=== PATIENT | female | born 1985 | race Caucasian/White ===

== ENCOUNTER 2016-04-21 06:09 | Inpatient (IN) | payer SELFPAY ==
[~2016-04-21] VITALS: Ht 170.2 cm; Wt 79.8 kg
[2016-04-21 06:29] VITALS: Ht 170.2 cm; Wt 79.8 kg
[2016-04-21 06:31] VITALS: BP 103/65; PULSE 78
[2016-04-21] MEDS ORDERED: MISOPROSTOL 200 MCG TAB PR PRN ×2 (07:00→08:00)
[2016-04-21] MEDS ORDERED: CEFAZOLIN 2 GM/50 ML (PMX) 50 ML IV SCH (07:00)
[2016-04-21] MEDS ORDERED: CARBOPROST 250 MCG INJ IM PRN (07:00)
[2016-04-21] MEDS ORDERED: OXYTOCIN 30 UNITS/LR 500 ML IV SCH (07:00)
[2016-04-21] MEDS ORDERED: METHYLERGONOVINE 0.2 MG INJ IM PRN (07:00)
[2016-04-21] MEDS ORDERED: OXYTOCIN 30 UNITS/LR 500 ML IV PRN (07:00)
[2016-04-21] MEDS ORDERED: ONDANSETRON 4 MG INJ ONE (07:31)
[2016-04-21] MEDS ORDERED: CITRIC ACID/NA CITRATE 30 ML CUP ONE (07:31)
[2016-04-21 07:33] LABS: BASOPHILS % 0.4 % (0.0-2.0); EOSINOPHILS # 0.2 10^3/ul (0.0-0.5); EOSINOPHILS % 2.2 % (0.0-7.0); HEMATOCRIT 34.3 % (37.0-47.0); HEMOGLOBIN 11.6 g/dl (12.0-16.0); LYMPHOCYTES # 1.7 10^3/ul (0.8-2.9); LYMPHOCYTES % 18.9 % (15.0-51.0); MEAN CORPUSCULAR HEMOGLOBIN 29.6 pg (29.0-33.0); MEAN CORPUSCULAR HGB CONC 33.9 g/dl (32.0-37.0); MEAN CORPUSCULAR VOLUME 87.2 fl (82.0-101.0); MEAN PLATELET VOLUME 8.4 fl (7.4-10.4); MONOCYTE # 0.9 10^3/ul (0.3-0.9); MONOCYTES % 10.1 % (0.0-11.0); NEUTROPHIL # 6.3 10^3/ul (1.6-7.5); NEUTROPHILS % 68.4 % (39.0-77.0); PLATELET COUNT 228 10^3/UL (140-440); RED BLOOD COUNT 3.94 10^6/ul (4.20-5.40); RED CELL DISTRIBUTION WIDTH 17.9 % (11.5-14.5); UNCORRECTED WBC 9.2 10^3/ul (4.8-10.8); WHITE BLOOD COUNT 9.2 10^3/ul (4.8-10.8)
[2016-04-21] MEDS ORDERED: LACTATED RINGER'S 1,000 ML IV SCH (07:33)
--- NOTE | 2016-04-21 07:37 | HP ---
Date/Time of Note Date/Time of Note DATE: 04/21/16 TIME: 07:34 OB - History Hx of Present Free Text/Dictation 31 YO with IUP at 39 weeks who desires to have repeat c/s Care: Other (she started [facility] in [place] and was followed there.) Ultrasounds: Normal mid trimester US Obstetrical Complications: None Medical Complications: None Past Family/Social History * Past Medical, Surgical, Family and Obstetric Histories reviewed from chart. OB Admission Exam Vital Signs Vital Signs Vital Signs Date Time Temp Pulse Resp B/P Pulse Ox O2 Delivery O2 Flow Rate FiO2 04/21/16 06:31 97.7 78 103/65 Room Air Physical Exam HEENT: WNL Heart: Rhythm Normal Lungs: Clear, Equal Abdomen: WNL Extremities: Normal Reflexes: Normal OB Assessment/Plan Reason for admission: section Other Assessment: 31 YO with IUP at 39 weeks who desires to have repeat c/s Plan: Section JAEL VILLANUEVA MD Apr 21, 2016 07:37
[2016-04-21 07:41] LABS: INR 0.9; PARTIAL THROMBOPLASTIN TIME 26.4 Sec (25.0-35.0); PROTIME 12.1 Sec (12.2-14.2); PT RATIO 0.9
[2016-04-21] MEDS ORDERED: LACTATED RINGER'S 1,000 ML IV ONE (07:56)
[2016-04-21] MEDS ORDERED: ONDANSETRON 4 MG INJ IV ONE (08:00)
[2016-04-21] MEDS ORDERED: LANOLIN 7 GM TUBE TOP PRN (08:00)
[2016-04-21] MEDS ORDERED: CITRIC ACID/NA CITRATE 30 ML CUP PO ONE (08:00)
[2016-04-21] MEDS ORDERED: OXYCODONE/ACETAMINOPHEN (5/325) TAB PO PRN (08:00)
[2016-04-21] MEDS ORDERED: NA PHOSPHATE/BIPHOS 133 ML ENEMA PR PRN (08:00)
[2016-04-21 08:02] LABS: CONDITION 1; LH ANALYZER COMMENTS 1
[2016-04-21] MEDS ORDERED: morphine SULFATE/PF (10 MG/10 ML) INJ ONE (08:12)
[2016-04-21] MEDS ORDERED: FENTAnyl 50 MCG/ML VIAL ONE (08:12)
[2016-04-21] MEDS ORDERED: PHENYLephrine (100 MCG/ML) 5ML SYG ONE (08:30)
--- NOTE | 2016-04-21 08:30 | PREOPHP ---
DATE OF ADMISSION: 04/21/2016 HISTORY OF PRESENT ILLNESS: The patient is a 31-year-old 2, para 1 with at [facility], with history of previous delivery who desires to have repeat delivery. I have discussed with patient the risks, benefits, indications, alternatives of procedure including but no t limited to risk of infection, bleeding, damage to other organs, bowel, bladder, hernia formation, scar formation, possibility of blood transfusions. She was allowed to ask questions, all her questi ons were answered, and informed consent has been obtained. PAST MEDICAL HISTORY: None. PAST SURGICAL HISTORY: delivery and breast biopsy. ALLERGIES: NO KNOWN DRUG ALLERGIES. MEDICATIONS: 1. vitamins. 2. Iron. REVIEW OF SYSTEMS: Significant as above. PHYSICAL EXAMINATION: VITAL SIGNS: Stable. She is afebrile. GENERAL: In no acute distress. HEENT: No thyromegaly. HEART: Regular rate and rhythm. LUNGS: Clear to auscultation bilaterally. ABDOMEN: Soft, gravid. EXTREMITIES: No edema. ASSESSMENT: 1. Term . 2. History of previous delivery. PLAN: Repeat delivery. Informed consent has been obtained. Dictated By: JAEL GILL/FAITH Conf#: [id number] DID#: [id number]
[2016-04-21] MEDS ORDERED: METOCLOPRAMIDE 10 MG INJ ONE (08:31)
[2016-04-21] MEDS ORDERED: ONDANSETRON 4 MG INJ IV PRN (09:00)
[2016-04-21] MEDS ORDERED: ZOLPIDEM 5 MG TAB PO PRN (09:00)
[2016-04-21] MEDS ORDERED: DIPHENHYDRAMINE 50 MG INJ IV PRN (09:00)
[2016-04-21] MEDS ORDERED: HYDROmorphONE 1 MG/ML SYG IV PRN ×2 (09:00)
[2016-04-21] MEDS ORDERED: PROCHLORPERAZINE 10 MG INJ IV PRN (09:00)
[2016-04-21] MEDS: SENNA/DOCUSATE NA (8.6MG/50MG) TAB PO SCH ×2 (09:00→21:00)
[2016-04-21] MEDS ORDERED: NALOXONE (0.4 MG/ML) INJ IV PRN (09:00)
[2016-04-21] MEDS: KETOROLAC 30 MG INJ IV PRN (10:32)
[2016-04-21] MEDS: IBUPROFEN 600 MG TAB PO SCH ×2 (12:00→18:00)
[2016-04-21 12:30] VITALS: BP 103/55; PULSE 58; RESP 18
[2016-04-21] MEDS: LACTATED RINGER'S 1,000 ML IV SCH (13:53)
[2016-04-21 17:34] VITALS: BP 116/56; PULSE 59; RESP 18
[2016-04-21 20:00] VITALS: BP 106/51; PULSE 59; RESP 18
[2016-04-22] VITALS: BP 98/59; PULSE 69; RESP 18
[2016-04-22 04:00] VITALS: BP 96/53; PULSE 80; RESP 18
[2016-04-22] MEDS: LACTATED RINGER'S 1,000 ML IV SCH (04:36)
[2016-04-22] MEDS: IBUPROFEN 600 MG TAB PO SCH ×5 (06:00→23:37)
[2016-04-22] MEDS: KETOROLAC 30 MG INJ IV PRN (06:48)
[2016-04-22 07:50] VITALS: BP 93/55; PULSE 77; RESP 16
[2016-04-22] MEDS: SENNA/DOCUSATE NA (8.6MG/50MG) TAB PO SCH ×2 (09:21→21:02)
[2016-04-22] MEDS: OXYCODONE/ACETAMINOPHEN (5/325) TAB PO PRN ×2 (09:22→18:49)
[2016-04-22 09:46] LABS: RED BLOOD COUNT 3.76 10^6/ul (4.20-5.40)
[2016-04-22 09:47] LABS: HEMATOCRIT 33.3 % (37.0-47.0); HEMOGLOBIN 10.9 g/dl (12.0-16.0); LYMPHOCYTES % 9.3 % (15.0-51.0); MEAN CORPUSCULAR HGB CONC 32.7 g/dl (32.0-37.0); MEAN CORPUSCULAR VOLUME 88.6 fl (82.0-101.0); MEAN PLATELET VOLUME 10.6 fl (7.4-10.4); MONOCYTES % 6.5 % (0.0-11.0); PLATELET COUNT 213 10^3/UL (140-440); RED CELL DISTRIBUTION WIDTH 17.8 % (11.5-14.5)
[2016-04-22 09:48] LABS: BASOPHILS % 0.3 % (0.0-2.0); EOSINOPHILS % 1.2 % (0.0-7.0); LYMPHOCYTES # 1.1 10^3/ul (0.8-2.9); MONOCYTE # 0.8 10^3/ul (0.3-0.9); NEUTROPHIL # 9.9 10^3/ul (1.6-7.5)
[2016-04-22 09:49] LABS: EOSINOPHILS # 0.1 10^3/ul (0.0-0.5)
[2016-04-22 16:30] VITALS: BP 104/59; PULSE 75; RESP 18
--- NOTE | 2016-04-22 18:21 | QN ---
Documentation Comment pod1 pt doing well vss fundus firm CDI no edema a/p pod 1 continue care ALON LARIOS MD Apr 22, 2016 18:21
[2016-04-22 19:40] VITALS: BP 105/56; PULSE 68; RESP 18
[2016-04-23 04:00] VITALS: BP 101/50; PULSE 18; RESP 18
[2016-04-23] MEDS: IBUPROFEN 600 MG TAB PO SCH ×2 (05:29→12:42)
[2016-04-23 09:00] VITALS: BP 94/57; PULSE 70; RESP 18
[2016-04-23] MEDS: SENNA/DOCUSATE NA (8.6MG/50MG) TAB PO SCH (09:51)
[2016-04-23] MEDS ORDERED: IBUP800T25 PO ×2 (10:27→10:28)
[2016-04-23] MEDS ORDERED: ACET500C5 PO (10:30)
--- NOTE | 2016-04-23 11:34 | DS ---
Date/Time of Note Date/Time of Note DATE: 04/23/16 TIME: 11:32 Obstetrical Discharge Record Final Diagnosis Final Diagnosis: Term delivered Section Section: Repeat Complications Augmentation: No Induction: No Condition on Discharge Physical Assessment Voiding: Yes Bowel Movement: Yes Breast: Soft, non-tender, Filling Fundus: Firm Abdomen and Incision: soft and appropriate tender and incision is clean and intact and no sign of infection Calf Tenderness: No Patient Condition: Good JAEL VILLANUEVA MD Apr 23, 2016 11:34
[2016-04-24] MEDS ORDERED: MEASLES,MUMPS,RUBELLA VACCINE INJ SC* ONE (09:00)
[2016-04-24] MEDS ORDERED: DIPHTH/TET/ACEL PERTUSS (ADULT) 0.5 ML VIAL IM* ONE (09:00)
--- NOTE | 2016-04-25 20:05 | OPR ---
DATE OF OPERATION: PREOPERATIVE DIAGNOSIS: Term , history of previous delivery, desires repeat aleah marcela delivery. POSTOPERATIVE DIAGNOSIS: Term , history of previous delivery, desires repeat cesa rean delivery. OPERATION PERFORMED: Repeat delivery. SURGEON: Jael Triplett MD BRAKER PASSENGER TRAIN: Alayna Michelle MD ESTIMATED BLOOD LOSS: 700 COMPLICATIONS: None. CONSENT: Risks, benefits, indications, alternatives of procedure including but not limited to risk of infection; bleeding; damage to other organs, bowel, bladder; hernia formation; scar formation; po ssibility of blood transfusions were discussed with the patient. She was allowed to ask questions. All her questions answered. Informed consent has been obtained. PROCEDURE: She was taken to the operating room, and spinal anesthesia was given. She was prepped a nd draped in the usual sterile fashion. Knife was used to make a Pfannenstiel skin incision. Incis ion was taken down in layers. The fascia was cut, undermined, from the underlying muscle using sharp and blunt dissection. All the bleeders were cauterized. Peritoneum was entered bluntly . A low transverse incision was developed over the uterus, and a viable was delivered in jules jean presentation. The amniotic fluid was clear and adequate. The cord was clamped and cut, handed to awaiting team. Placenta was then delivered. Uterus was exteriorized, wrapped in a moist lap. I nside uterus was cleaned using a dry lap. All debris and membranes were removed. Uterine incision was then closed using #1 Monocryl in 2 layers. Uterus was inserted back inside abdominal cavity. I rrigation was done. Gutters were cleaned. Uterine incision was evaluated carefully. There was no further bleeding. Rectus muscle, rectus fascia and peritoneum were evaluated. All bleeders cauteri zed. Peritoneum was closed using 2-0 Monocryl. Rectus muscle was reapproximated using 2-0 Monocryl . The fascia was closed using #1 Vicryl. Subcutaneous tissue was cleaned and irrigated, all bleede rs cauterized and closed using 2-0 plain and the skin closed using 4-0 Monocryl. All counts correct . Dictated By: JAEL GILL/FAITH Conf#: [id number] DID#: [id number]
== END 2016-04-23 13:00 | disposition home or self-care (01) | DRG 766 ==
LOC: L-D 06:09 → PP1 12:14
PROVIDERS: ADMIT Specialist; ATTEND Specialist
PROC: 10D00Z1 Extraction of Products of Conception, Low, Open Approach (ICD-10-PCS; principal; 2016-04-21 07:30)
PROC: 3E00X4Z Introduction of Serum, Toxoid and Vaccine into Skin and Mucous Membranes, External Approach (ICD-10-PCS; 2016-04-23)
DX: O34.211 Maternal care for low transverse scar from previous cesarean delivery (principal); Z23 Encounter for immunization; Z3A.39 39 weeks gestation of pregnancy; Z37.0 Single live birth
CPT/HCPCS: 85025; 85610; 85730; 86592; 86850; 86900; 86901; 87340; 90715; 94760; 99464; J0690; J0780; J1170; J1885; J2274; J2370; J2405; J2590; J2765; J3010; J7120